=== PATIENT | female | born 1985 | race African-American/Black ===

== ENCOUNTER 2017-10-12 14:07 | Emergency (ER) | payer OTHER ==
[~2017-10-12] VITALS: Ht 177.8 cm; Wt 90.7 kg
[~2017-10-12 14:07] MED LIST: ADVAIR 500-501 EACH INH; AMOXICILLIN 50500 MG PO; CLARITIN10 MG PO; FLONASE 0.05%50 MCG NS; IBUPROFEN 400400 M1 PO; IRON; IRON325 OR; PRENATAL; PROZAC 20 MG20 MG; VENTOLIN17 GM INH; VISTARIL
[2017-10-12] MEDS ORDERED: NORCO 5-325 TA1 EACH PO (14:18)
[2017-10-12] MEDS ORDERED: PENICILLIN V P500 MG PO (14:18)
== END 2017-10-12 14:24 | disposition home or self-care (01) ==
LOC: ER 14:07
DX: K04.7 Periapical abscess without sinus (principal); K08.89 Other specified disorders of teeth and supporting structures; Z88.8 Allergy status to other drugs, medicaments and biological substances